=== PATIENT | female | born 1960 | race Caucasian/White ===

== ENCOUNTER 2016-12-29 08:12 | Emergency (ER) | payer BC ==
--- NOTE | ~2016-12-29 | ER ---
PATIENT'S NAME: STEFANY DELGADO [facility] AGE: 56 Y [address] ROOM: [place] [id number] LOCATION: ED ADMIT DATE: 12/29/2016 ER/Outpatient Report DISCHARGE DATE: 12/29/2016 FAMILY PHYSICIAN: Taryn Castle APRN ATTENDING PHYSICIAN: Satish Hood Time of arrival: 0812 hours. Time of evaluation: 0830 hours. CHIEF COMPLAINT: Urinary symptoms. HISTORY OF PRESENT ILLNESS: The patient is a 56-year-old female, who presents to emergency department today with a chief complaint urinary symptoms. She reports she has had right flank pain that lasted about 20 minutes. It occurred just an hour ago. She reports the pain subsided currently 0/10 in severity. It was in the right flank, it was sharp. She has not had a history of similar episodes in the past. She did have some nausea with and some dry heaves, none now. Denies any history of kidney stones. No fevers or chills. She has some constipation, but did have a bowel movement this morning. She does have urge of fullness; however, she is able to urinate. PAST MEDICAL HISTORY: 1. Migraines. 2. Hypertension. 3. Dyslipidemia. 4. Anxiety. PAST SURGICAL HISTORY: 1. Cervical cancer. 2. Sinus surgery. 3. Fatty tumor. 4. Left ankle hysterectomy. SOCIAL HISTORY: The patient denies any tobacco use. Reports rare alcohol use. Denies any illicit drug use. ALLERGIES: CODEINE. MEDICATIONS: 1. Paxil. 2. Atorvastatin. PATIENT'S NAME: STEFANY DELGADO [facility] AGE: 56 Y [address] ROOM: [place] [id number] LOCATION: ED ADMIT DATE: 12/29/2016 ER/Outpatient Report DISCHARGE DATE: 12/29/2016 FAMILY PHYSICIAN: Taryn Castle APRN ATTENDING PHYSICIAN: Satish Hood 3. Bystolic. 4. Imitrex. REVIEW OF SYSTEMS: All systems are reviewed by myself and negative with the exception of those discussed in HPI and past medical history. PHYSICAL EXAMINATION: VITAL SIGNS: Weight 77.8 kg, blood pressure 132/75, pulse 64, respiratory rate 20, temperature 97.1, and oxygen saturation 97% on room air. GENERAL: The patient is a 56-year-old female, who appears stated age, in no acute distress at this time HEENT: Head: Normocephalic and atraumatic. Pupils are equal, round, and reactive to light and accommodation. Extraocular motions are intact. Nares are patent bilaterally. TMs are clear. Oropharynx is clear. NECK: Supple. There is no nuchal rigidity. CARDIOVASCULAR: Regular rate and rhythm. No murmurs, rubs, or gallops. LUNGS: Clear to auscultation bilaterally. No wheezes, rales, or rhonchi. ABDOMEN: Soft, nontender, and nondistended. No rebound, rigidity, or guarding. MUSCULOSKELETAL: The patient moves all 4 extremities. SKIN: Warm and dry. There is no rashes or lesions noted. LABORATORY DATA AND X-RAYS: Urinalysis shows positive nitrites, 15 protein, 50 blood, 0 to 2 WBCs, 5 to 10 RBCs, 2 to 5 epithelials. CMP is unremarkable. LFTs are normal. CBC is normal. CT scan of the abdomen and pelvis with IV contrast is obtained. I have discussed results with the radiologist. It does appear to be of 1 mm ureterolithiasis at the UVJ with some very mild hydronephrosis. IMPRESSION: 1. 1-mm ureterolithiasis at the ureterovesical junction with very mild hydronephrosis. 2. Questionable urinary tract infection. 3. Initial visit. EMERGENCY DEPARTMENT COURSE: The patient brought back to the examination room. Seen and evaluated by myself. Laboratory analysis and imaging are obtained as described above. I have discussed results with the patient. I have written a prescription for Naprosyn for home as well as Keflex. I have recommended close followup with Taryn Castle, the patient's primary care doctor in 2 to 3 days. I have discussed return to care instructions including worsening symptoms or any other concerns to return to the emergency department as soon as possible. The patient is agreeable without further questions at this time. PATIENT'S NAME: STEFANY DELGADO [facility] AGE: 56 Y [address] ROOM: [place] [id number] LOCATION: ED ADMIT DATE: 12/29/2016 ER/Outpatient Report DISCHARGE DATE: 12/29/2016 FAMILY PHYSICIAN: Taryn Castle APRN ATTENDING PHYSICIAN: Satish Hood DISPOSITION: The patient discharged home in good condition. DO CRISTOFER FORRESTER/fredisl /[id number] d: 12/29/16 1033 t: 12/30/16 0844, OUTPATIENT REPORT
[2016-12-29 08:48] LABS: BLOOD URINE 50 /UL (NEGATIVE); GLUCOSE URINE NEGATIVE (NEGATIVE); KETONE URINE NEGATIVE (NEGATIVE); LEUKOCYTES URINE NEGATIVE /UL (NEGATIVE); NITRITE URINE POSITIVE (NEGATIVE); PROTEIN URINE 15 mg/dL (NEGATIVE); UROBILINOGEN URINE 4 mg/dL (NORMAL)
[2016-12-29 08:50] LABS: BASOPHIL # 0.1 K/uL (0.0-0.2); BASOPHIL % 0.7 %; EOSINOPHIL # 0.1 K/uL (0.0-0.5); EOSINOPHIL % 1.3 %; HEMATOCRIT 43.4 % (33.0-46.0); HEMOGLOBIN 14.8 g/dL (10.0-15.0); IMMATURE GRANULOCYTE % 0.1 %; LYMPHOCYTE # 2.5 K/uL (0.8-4.0); LYMPHOCYTE % 35.9 %; MCH 29.6 pg (27.0-34.0); MCHC 34.1 gm/dL (32.0-36.5); MCV 86.8 fl (83.0-98.0); MONOCYTE # 0.6 K/uL (0.0-1.0); MONOCYTE % 8.1 %; MPV 9.5 fl (9.4-12.4); NEUTROPHIL # (ANC) 3.7 K/uL (1.8-7.8); NEUTROPHIL % 53.9 %; NRBC % 0 /100WBC (0-0.00); PLATELET COUNT 275 K/uL (150-450); RDW-CV 12.8 % (11.9-14.6); WBC 6.8 K/uL (4.0-11.0)
[2016-12-29 09:03] LABS: ALBUMIN 3.9 gm/dL (3.5-5.0); ALK PHOS 79 IU/L (33-138); ALT 26 IU/L (12-78); ANION GAP 13.6 (10.0-19.0); AST 16 IU/L (10-40); BLOOD UREA NITROGEN 11 mg/dL (6-24); CHLORIDE 112 mMol/L (96-110); CO2 22 mMol/L (22-32); CREATININE 0.9 mg/dL (0.5-1.1); ESTIMATED GFR (MDRD EQUATION) > 60; POTASSIUM 3.6 mMol/L (3.7-5.1); SODIUM 144 mMol/L (135-145); TOTAL BILIRUBIN 0.6 mg/dL (0.0-1.5); TOTAL PROTEIN 7.4 g/dL (6.0-8.4)
[2016-12-29 09:08] LABS: COLOR URINE ORANGE (YELLOW); TURBIDITY URINE CLEAR (CLEAR)
[2016-12-29 09:11] LABS: WBC URINE 0-2 #/HPF (NEGATIVE)
[2016-12-29 09:15] LABS: BACTERIA URINE FEW (NEGATIVE); YEAST URINE FEW (NEGATIVE)
== END 2016-12-29 09:47 | disposition disaster alternative care site (69) ==
LOC: GMED 08:12
PROVIDERS: Emergency Medicine
DX: N13.2 Hydronephrosis with renal and ureteral calculous obstruction (principal); G43.909 Migraine, unspecified, not intractable, without status migrainosus; I10 Essential (primary) hypertension; E78.5 Hyperlipidemia, unspecified; F41.9 Anxiety disorder, unspecified; Z98.890 Other specified postprocedural states; Z85.41 Personal history of malignant neoplasm of cervix uteri; Z88.5 Allergy status to narcotic agent; Z79.899 Other long term (current) drug therapy